=== PATIENT | male | born 1985 | race Hispanic/Latino ===

== ENCOUNTER 2019-11-26 09:15 | Day surgery (SDC) | payer BC, OTHER ==
[2019-11-26 09:32] LABS: Absolute Lymphocytes (CBC) 1.7 K/uL (0.7-4.9); Basophils % 0.6 % (0-1.3); Hematocrit 44.9 % (39.6-49.0); Lymphocytes % 22.2 % (15.3-44.8); MPV 8.8 fL (7.6-11.3); RBC Red Blood Cell Count 4.95 M/uL (4.33-5.43)
[2019-11-26] MEDS ORDERED: Ringers Lactate 1,000 ML IV ONE (09:56)
[2019-11-26] MEDS ORDERED: CEFOXITIN/SWI 1gm 1 GM/10 ML SYR ONE (09:57)
[2019-11-26] MEDS ORDERED: propofoL 200 MG/20 ML VIAL IV ONE (10:07)
[2019-11-26] MEDS ORDERED: LIDOCAINE 2% MPF 5 ML VIAL ONE (10:07)
[2019-11-26] MEDS ORDERED: MIDAZOLAM HCL 2 MG/2 ML INJ ONE (10:08)
[2019-11-26] MEDS ORDERED: FENTANYL CITR 250 MCG/5 ML ONE (10:08)
[2019-11-26] MEDS ORDERED: dexAMETHasone 10 MG/ML VIAL ONE (11:32)
[2019-11-26] MEDS ORDERED: KETOROLAC 30 MG/ML INJ ONE (11:33)
[2019-11-26] MEDS ORDERED: ONDANSETRON 4 MG/2 ML VIAL ONE (11:33)
[2019-11-26] MEDS ORDERED: HYDROCODONE/APAP 7.5/325 MG TAB ONE (12:58)
[2019-11-26 13:09] VITALS: BP 108/63; TEMP 97.2; O2SAT 100
--- NOTE | 2019-11-26 14:33 | OP ---
Date of Procedure: 11/26/2019 Surgeon: West Tam MD Preoperative Diagnosis: Hemorrhoids and rectal pain. Postoperative Diagnosis: Hemorrhoids and rectal pain with posterior midline fissure. Procedure Performed: Exam under anesthesia, rigid proctoscopy, hemorrhoidectomy, and fissurectomy. Estimated Blood Loss: Minimal. Specimens: Fissure and hemorrhoids at the posterior midline. Findings: As above. Anesthesia: General. Complications: None. Disposition: Patient tolerated the procedure in stable condition, taken to Recovery in good general condition. Procedure In Detail: Patient was brought to the OR and placed in supine position. General anesthesi a was begun. The patient placed in lithotomy position. Prepped draped in the usual sterile fashion. Exam under anesthesia revealed an indurated tissue at the posterior midline with small hemorrhoids surrounding it. Rigid proctoscopy confirmed this and there were no other findings. Subsequently, a Harmonic Scalpel was used to excise the fissure and the hemorrhoids together and sent to Pathology. Bleeding controlled with cautery. Marcaine 0.5% infiltrated for postop pain control and rectal pack consisting of Gel-Foam, Surgicel, and Vaseline gauze was placed. Sterile dressing was applied. Deepa ent was awakened and taken to Recovery in good general condition. Discharge Note: Patient will go to Day Surgery, then home when stable. Condition: Stable. Discharge Instructions: Resume home medications and diet. Activity as tolerated. High-fiber diet. Sitz baths q.i.d. and p.r.n. Metamucil 1 tablespoons p.o. t.i.d. Procto-HC 2.5% to anus b.i.d. and p.r.n. Colace 100 mg p.o. b.i.d., Tylenol No.3 one tablet p.o. q.4 p.r.n. pain. Follow up in [place] in 2 weeks. Call for appointment. VALERIE/KANDICE Voice ID: [id number] Report ID: [id number]
== END 2019-11-26 13:35 | disposition home or self-care (01) ==
LOC: OR 09:15
PROVIDERS: ATTEND Surgery
PROC: 0DJD8ZZ Inspection of Lower Intestinal Tract, Via Natural or Artificial Opening Endoscopic (ICD-10-PCS; 2019-11-26)
PROC: 0DBQ7ZZ Excision of Anus, Via Natural or Artificial Opening (ICD-10-PCS; principal; 2019-11-26 12:30)
DX: K64.9 Unspecified hemorrhoids (principal); K60.2 Anal fissure, unspecified
CPT/HCPCS: 85025; 36415; 88304; 45300; 46257; J2704; J2250; J3010; J1100; J7120; J2405